=== PATIENT | female | born 2000 | race African-American/Black ===

== ENCOUNTER 2025-09-21 22:33 | Inpatient (IN) | payer MEDICAID ==
[~2025-09-21] VITALS: Ht 160 cm; Wt 51.3 kg
[2025-09-21 22:37] VITALS: O2SAT 99
[2025-09-21] MEDS: ONDANSETRON HCL 4MG/2ML INJ IV ONE (23:41)
[2025-09-21] MEDS: SODIUM CHLORIDE 0.9% 1,000 ML IV ONE (23:41)
[2025-09-21] MEDS: MORPHINE SULFATE 4 MG/ML INJ (FOR IV/IM USE) IV ONE (23:41)
[2025-09-21 23:50] LABS: BASOPHILS % 0.4 % (0.0-2.0); EOSINOPHILS % 1.8 % (0.0-5.0); HEMATOCRIT. 40.5 % (36.0-48.0); HEMOGLOBIN. 13.2 g/dL (12.0-16.0); LYMPHOCYTES % 28.5 % (20.0-50.0); MEAN PLATELET VOLUME 9.4 fl (7.4-10.4); MONOCYTES % 7.7 % (2.0-8.0); NEUTROPHILS % 61.6 % (40.0-76.0); PLATELET 238 x1000/uL (130-400); RED BLOOD CELL COUNT 4.14 mill/uL (4.2-5.4); RED CELL DISTRIBUTION WIDTH 12.9 % (11.6-14.6)
[2025-09-21 23:58] LABS: INR 1.0
[2025-09-22] LABS: CREATININE 0.9 mg/dL (0.6-1.0)
[2025-09-22 00:01] LABS: PROTEIN TOTAL 7.2 g/dL (6.0-8.3); UREA NITROGEN BLOOD 10 mg/dL (9-23)
[2025-09-22 00:02] LABS: ASPARTATE AMINOTRANSFERASE 38 IU/L (<34); BILIRUBIN DIRECT < 0.1 mg/dL (<=3.0)
[2025-09-22 00:03] LABS: BILIRUBIN TOTAL 0.3 mg/dL (0.1-1.0)
[2025-09-22 00:20] LABS: CLARITY URINE CLOUDY (CLEAR); COLOR URINE YELLOW (YELLOW); GLUCOSE URINE NEGATIVE (NEGATIVE); KETONES URINE NEGATIVE (NEGATIVE); LEUKOCYTE ESTERASE URINE TRACE (NEGATIVE); NITRITE URINE NEGATIVE (NEGATIVE); OCCULT BLOOD URINE NEGATIVE (NEGATIVE); PH URINE 6.0 (4.5-8.0); PROTEIN URINE NEGATIVE (NEGATIVE); SPECIFIC GRAVITY URINE 1.017 (1.005-1.030); UROBILINOGEN URINE 1.0 E.U./dL (0.2-1.0)
[2025-09-22 01:38] LABS: AMORPHOUS SEDIMENT URINE 1+ /lpf; BACTERIA URINE TRACE; RBC URINE NONE SEEN /hpf (0-2); SQUAMOUS EPITHELIAL CELL URINE 2+ /lpf (RARE/1+)
[2025-09-22] MEDS: MAGNESIUM 2 G PREMIX 50 ML IV ONE (01:40)
[2025-09-22] MEDS ORDERED: DOCUSATE SODIUM 100MG CAPSULE PO PRN (01:45)
[2025-09-22] MEDS ORDERED: ONDANSETRON HCL 4MG/2ML INJ IV PRN (01:45)
[2025-09-22] MEDS ORDERED: DEXTROSE 50% WATER 50ML SYRINGE IV PRN (01:45)
[2025-09-22] MEDS ORDERED: DEXT 5%/0.45% NACL 1000ML 1,000 ML IV SCH (01:45)
[2025-09-22] MEDS ORDERED: ACETAMINOPHEN 325MG TABLET PO PRN ×2 (01:45)
[2025-09-22] MEDS ORDERED: CLONIDINE 0.1MG TABLET PO PRN (01:45)
[2025-09-22] MEDS: LACTATED RINGERS 1,000 ML IV SCH (03:47)
[2025-09-22 05:00] VITALS: BP 103/71; PULSE 80; RESP 19; TEMP 36.1956
[2025-09-22] MEDS: BLOOD SUGAR DIAGNOSTIC STRIP TEST SCH (06:14)
[2025-09-22] MEDS ORDERED: MORPHINE SULFATE 2 MG/ML INJ (NOT FOR IM USE) IV PRN (06:45)
[2025-09-22] MEDS: INSULIN LISPRO 100 UNITS/ML SUBCUT SCH (07:10)
[2025-09-22 08:00] VITALS: BP 110/50; PULSE 62; RESP 18; TEMP 36.5; O2SAT 100
[2025-09-22] MEDS: PANTOPRAZOLE SODIUM 40 MG/VIAL IV SCH (08:30)
[2025-09-22 12:00] VITALS: BP 118/62; PULSE 79; RESP 18; TEMP 36.6; O2SAT 99
[2025-09-22] MEDS ORDERED: ACET-2708 MT (12:03)
[2025-09-22] MEDS ORDERED: IBUP-1455 MT (12:03)
[2025-09-22 13:37] LABS: CREATININE 0.8 mg/dL (0.6-1.0); UREA NITROGEN BLOOD 8 mg/dL (9-23)
[2025-09-22 13:39] LABS: PHOSPHORUS 3.2 mg/dL (2.5-4.9); TROPONIN I HIGH SENSITIVITY 6 ng/L (3.0-34)
[2025-09-22 16:00] VITALS: BP 101/52; PULSE 79; RESP 18; TEMP 36.5; O2SAT 99
[2025-09-22 17:51] LABS: TROPONIN I HIGH SENSITIVITY 4 ng/L (3.0-34)
[2025-09-22 20:00] VITALS: BP 125/80; PULSE 77; RESP 16; TEMP 36.1; O2SAT 100
[2025-09-23] VITALS (7 sets, daily range): BP systolic 108–139; BP diastolic 54–87; PULSE 73–87; RESP 15–20; TEMP 36.1–36.8; O2SAT 97–100
[2025-09-23 08:38] LABS: BASOPHILS % 0.4 % (0.0-2.0); EOSINOPHILS % 2.8 % (0.0-5.0); HEMATOCRIT. 34.8 % (36.0-48.0); HEMOGLOBIN. 11.6 g/dL (12.0-16.0); LYMPHOCYTES % 49.6 % (20.0-50.0); MEAN PLATELET VOLUME 9.5 fl (7.4-10.4); MONOCYTES % 9.3 % (2.0-8.0); NEUTROPHILS % 37.9 % (40.0-76.0); PLATELET 187 x1000/uL (130-400); RED BLOOD CELL COUNT 3.57 mill/uL (4.2-5.4); RED CELL DISTRIBUTION WIDTH 13.0 % (11.6-14.6)
[2025-09-23 08:48] LABS: LDL CHOLESTEROL 81 mg/dL (5-100); TRIGLYCERIDE 195 mg/dL (0-150); UREA NITROGEN BLOOD 5 mg/dL (9-23)
[2025-09-23 08:49] LABS: ASPARTATE AMINOTRANSFERASE 18 IU/L (<34)
[2025-09-23 08:50] LABS: BILIRUBIN DIRECT < 0.1 mg/dL (<=3.0); BILIRUBIN TOTAL 0.3 mg/dL (0.1-1.0)
[2025-09-23 08:51] LABS: PROTEIN TOTAL 4.4 g/dL (6.0-8.3); T4 FREE 0.77 ng/dL (0.89-1.76)
[2025-09-23 08:52] LABS: CREATININE 0.5 mg/dL (0.6-1.0)
[2025-09-24 04:00] VITALS: BP 121/54; PULSE 73; RESP 20; TEMP 36.5; O2SAT 100
[2025-09-24] MEDS: PANTOPRAZOLE 40MG DR TABLET PO SCH (07:34)
[2025-09-24 08:00] VITALS: BP 125/60; PULSE 70; RESP 18; TEMP 36.8; O2SAT 99
[2025-09-24 09:19] VITALS: BP 125/80; PULSE 80; RESP 16; TEMP 98.2
== END 2025-09-24 10:49 | disposition home or self-care (01) ==
LOC: ER 22:33 → 7EST 09-22 01:20 → EDBEDREQ 09-22 01:27 → EDBEDREQTM 09-22 01:27 → ENRESERV 09-22 02:20
PROVIDERS: ADMIT Internal Medicine; ATTEND Internal Medicine
DX: K80.20 Calculus of gallbladder without cholecystitis without obstruction (principal); R16.0 Hepatomegaly, not elsewhere classified; N30.00 Acute cystitis without hematuria; E11.9 Type 2 diabetes mellitus without complications; E83.42 Hypomagnesemia; Z79.84 Long term (current) use of oral hypoglycemic drugs; Z98.891 History of uterine scar from previous surgery
CPT/HCPCS: 36415; 71045; 76705; 80048; 80061; 80076; 81003; 82962; 83036; 83735; 84100; 84439; 84443; 84481; 84484; 85025; 86850; 86900; 93970; 99285; J2270; J2405; J2470; J3475; J7030